=== PATIENT | female | born 1945 | race Caucasian/White ===

== ENCOUNTER 2019-09-16 08:35 | Outpatient (CLI) | payer MEDICARE, OTHER, SELFPAY ==
--- NOTE | ~2019-09-16 | MM_ITS ---
EXAMINATION: MM screening [facility] BI w [facility]rew HISTORY: Screening mammogram TECHNIQUE: Craniocaudal and mediolateral oblique 3-D tomosynthesis images were obtained and synthetic 2-D images were generated. CAD analysis was submitted and interpreted. COMPARISON: Comparison to multiple prior studies sequentially, with oldest reviewed study dated 11/2013. BREAST PARENCHYMAL COMPOSITION: There are scattered areas of fibroglandular density. FINDINGS: Stable architectural distortion upper outer quadrant of the right breast consistent with pr evious lumpectomy. There are benign breast calcifications. There is no evidence of suspicious mass, c alcification, or architectural distortion to suggest malignancy in either breast. There has been no s uspicious interval change. IMPRESSION: 1. No mammographic evidence of malignancy. 2. Recommend routine screening mammography in one year. BI-RADS Category 2: Benign finding(s). Reviewed, dictated and finalized at location A.
== END 2019-09-16 08:36 | disposition home or self-care (01) ==
PROVIDERS: PCP Physician Assistant; Visit Provider Physician Assistant
DX: Z12.31 Encounter for screening mammogram for malignant neoplasm of breast (principal)
CPT/HCPCS: 77063; 77067

== ENCOUNTER 2020-09-17 08:52 | Outpatient (CLI) | payer MEDICARE, OTHER, SELFPAY ==
--- NOTE | ~2020-09-17 | MM_ITS ---
EXAMINATION: MM screening [facility] BI w andrew HISTORY: Screening mammogram TECHNIQUE: Craniocaudal and mediolateral oblique 3-D tomosynthesis images were obtained and synthetic 2-D images were generated. CAD analysis was submitted and interpreted. COMPARISON: 09/16/2019 09/13/2018, 09/09/2017 BREAST PARENCHYMAL COMPOSITION: There are scattered areas of fibroglandular density. FINDINGS: Stable lumpectomy changes are present in the upper outer quadrant of the right breast. Ther e is no evidence of suspicious mass, calcification, or architectural distortion to suggest malignancy in either breast. There has been no suspicious interval change. IMPRESSION: 1. No mammographic evidence of malignancy. 2. Recommend routine screening mammography in one year. BI-RADS Category 2: Benign finding(s). Reviewed, dictated and finalized at location A.
== END 2020-09-17 08:53 | disposition home or self-care (01) ==
LOC: ANHIMG 08:56
PROVIDERS: PCP Physician Assistant; Visit Provider Physician Assistant
DX: Z12.31 Encounter for screening mammogram for malignant neoplasm of breast (principal)
CPT/HCPCS: 77063; 77067

== ENCOUNTER 2020-12-09 17:54 | Emergency (ER) | payer MEDICARE, OTHER, SELFPAY ==
--- NOTE | ~2020-12-09 | CT_ITS ---
EXAMINATION: CT brain wo con DATE: 12/09/2020 23:01 INDICATION: Dizziness. TECHNIQUE: Computed tomography (CT) of the head was performed without intravenous contrast. The mA wa s adjusted according to patient size. Iterative reconstruction technique was employed. The dose-lengt h product was 605.33 mGy-cm. COMPARISON: None FINDINGS: There are scattered areas of low attenuation in the cerebral white matter, which is within normal limits for the patient's age. There is no intracranial hemorrhage, acute infarction, or abnorm al intracranial mass lesion. The ventricles are normal in size. There is mild mucosal thickening in t he paranasal sinuses. The mastoid air cells are normal. The orbits are normal. IMPRESSION: 1. Normal aging brain. Reviewed, dictated and finalized at location A. IMPRESSION: 1. Normal aging brain.
--- NOTE | ~2020-12-09 | XR_ITS ---
EXAMINATION: XR chest 1V portable DATE: 12/09/2020 22:57 INDICATION: Dizziness. TECHNIQUE: A single frontal view of the chest was obtained. COMPARISON: None. FINDINGS: There is eventration of right hemidiaphragm. No pneumonia, pleural effusion, or pneumothora x. The heart size is normal. IMPRESSION: 1. No acute cardiopulmonary disease. Reviewed, dictated and finalized at location A.
[2020-12-09 17:57] VITALS: BP 154/68; PULSE 88; RESP 16; TEMP 36.3; O2SAT 96
--- NOTE | 2020-12-09 18:00 | ECG_ITS ---
Measurements Intervals [place] Rate: 76 P: 18 OK: 180 QRS: 6 QRSD: 70 T: 52 QT: 374 QTc: 421 Interpretive Statements SINUS RHYTHM INCOMPLETE RIGHT BUNDLE BRANCH BLOCK VOLTAGE CRITERIA FOR LVH BORDERLINE ECG Electronically Signed On 12-09-2020 18:33:27 CDT by Donis Her D.O.
[2020-12-09 18:24] LABS: Basophils Absolute Auto 0.1 K/mm3 (0.0-0.1); Basophils Percent Auto 0.6 % (0.2-1.2); Eosinophils Absolute Auto 0.3 K/mm3 (0-0.3); Eosinophils Percent Auto 2.7 % (0-4.4); Hematocrit 42.1 % (37.0-47.0); Hemoglobin 13.6 g/dL (12.0-15.0); Immature Granulocyte Absolute 0.05 K/mm3 (0.00-0.031); Immature Granulocyte Percent A 0.5 % (0-0.5); Lymphocytes Absolute Auto 4.37 K/mm3 (0.9-3.2); Lymphocytes Percent Auto 41.2 % (18.3-44.2); Mean Corpuscular HGB Conc 32.3 g/dl (32-36); Mean Corpuscular Hemoglobin 29.4 pg (26-34); Mean Corpuscular Volume 91.1 fl (80-100); Monocytes Percent Auto 9.5 % (2.6-8.5); Neutrophils Absolute Auto 4.8 K/mm3 (1.3-6.7); Neutrophils Percent Auto 45.5 % (45.5-73.1); Platelet Count Result 367 k/mm3 (150-375); Red Blood Count 4.62 M/mm3 (4.2-5.4); Red Cell Distribution Width 13.4 % (11.5-14.5); White Blood Count 10.6 K/mm3 (4.5-10.0)
[2020-12-09 18:35] LABS: Anion Gap 14 mmol/L (8-16); Blood Urea Nitrogen 27 mg/dL (7-17); Calcium 10.1 mg/dL (8.4-10.2); Carbon Dioxide 24 mmol/L (22-30); Chloride 100 mmol/L (98-107); Estimated CRCL calculation 56 ml/min; Estimated Glomerular Filt Rate > 60; Glucose 184 mg/dL (65-105); Potassium 3.5 mmol/L (3.4-5.0); Sodium 138 mmol/L (137-145)
[2020-12-09 20:42] VITALS: BP 142/65; PULSE 84; RESP 14; TEMP 36.8; O2SAT 93
--- NOTE | 2020-12-09 22:39 | ED.DIZZY ---
HPI - Dizziness General Chief Complaint: Syncope Stated Complaint: SYNCOPE Time Seen by Provider: 12/09/20 22:34 Source: RN notes reviewed History of Present Illness HPI Narrative: Patient presents emergency department from home for dizziness. Patient states approximately 4 PM today she began to feel very dizzy with a feeling that she could pass out and that the room was spinning she states that this is associated with 3 episodes of nausea and vomiting states that approximately after 1 hour the symptoms completely resolved and she is been symptom-free since that time she denies any numbness or tingling in the extremities, difficulty speaking, chest pain, shortness of breath, abdominal pain or any other symptoms Related Data Home Medications Medication Instructions Recorded Confirmed levothyroxine 12/09/20 lisinopril-hydrochlorothiazide tablet 12/09/20 metformin mg 12/09/20 Allergies Allergy/AdvReac Type Severity Reaction Status Date / Time No Known Allergies Allergy Mild Verified 12/09/20 17:57 NKDA Allergy Unknown NONE Uncoded 08/25/07 10:57 Review of Systems Review of Systems: Narrative: Gen.: Denies fevers or chills Eyes: Denies eye pain or visual change ENT: Denies congestion Respiratory: Denies shortness of breath or cough CV: Denies chest pain or palpitations GI: Denies abdominal pain reports nausea vomiting denies burning, urgency, frequency or hematuria Musculoskeletal: Denies back pain or muscle pain Neuro: See HPI Skin: Denies rash Except as documented, all other systems reviewed and negative [facility] Past Medical History Medical History (Updated 12/09/20 @ 23:46 by Mika Alatorre DO) Diabetes mellitus Family History Family History (Updated 08/13/15 @ 16:27 by DOCTOR UNKNOWN) Other Diabetes mellitus Family history of cardiovascular disease Hypertension Social History Social History Smoking status: Never smoker Second hand tobacco smoke exposure: No Alcohol intake: never Gender identity (if verbalized by the patient): Female Exam Narrative: Exam Narrative: APPEARANCE: No acute distress, nontoxic, resting in bed HEENT: Normocephalic, atraumatic, OMM, TMs clear bilaterally EYES: PERRL, EOMI NECK: Supple, nontender, full range of motion without pain, no meningismus RESPIRATORY: No respiratory distress, clear to auscultation bilaterally with no rhonchi wheezing or rales CARDIOVASCULAR: RRR s murmur ABDOMINAL: Soft, nontender, nondistended MUSCULOSKELETAL: Moves all extremities. No clubbing, cyanosis or edema. NEURO: A and O ?3, following commands, speech normal, cranial nerves II through XII grossly intact,muscle strength 5 out of 5 bilateral upper and lower extremities SKIN:: Warm, dry. Normal Color PSYCHIATRIC: Normal affect/mood Course Course Emergency Course: Patient has been asymptomatic throughout her stay in the ED Discussed with patient results of workup and diagnosis. Discussed need for follow-up with primary care, proper use of medication, and reasons to return to the emergency department. Patient understands and agrees to current treatment plan Vital Signs Vital signs: Vital Signs Temperature 97.4 F L 12/09/20 17:57 Pulse Rate 88 12/09/20 17:57 Respiratory Rate 16 12/09/20 17:57 Blood Pressure 154/68 H 12/09/20 17:57 Pulse Oximetry 96 12/09/20 17:57 Temperature 98.3 F 12/09/20 20:42 Pulse Rate 84 12/09/20 20:42 Respiratory Rate 14 12/09/20 20:42 Blood Pressure 142/65 H 12/09/20 20:42 Pulse Oximetry 93 12/09/20 20:42 MDM - Dizziness MDM Narrative Medical decision making narrative: Patient's vertigo is felt to be likely peripheral in origin. There is no diplopia, dysarthria or dysphagia. Patient's gait is stable and there are no cerebral deficits to exam. Risk factor for central causes of vertigo reviewed. Patient felt likely reasonable for continued outpatient manag
[2020-12-09 23:41] LABS: Troponin I < 0.012 ng/mL (0.000-0.034)
[2020-12-09 23:52] LABS: INR 0.9; Prothrombin Time 12.5 Seconds (11.1-14.7)
[2020-12-09 23:55] LABS: Partial Thromboplastin Time 24.7 SECONDS (22.3-36.8)
[2020-12-10 00:08] VITALS: BP 143/71; PULSE 79; RESP 25; O2SAT 96
== END 2020-12-10 00:11 | disposition home or self-care (01) ==
PROVIDERS: Emergency Medicine; Emergency Provider Emergency Medicine; PCP Physician Assistant
DX: R42 Dizziness and giddiness (principal); E11.9 Type 2 diabetes mellitus without complications; Z79.84 Long term (current) use of oral hypoglycemic drugs
CPT/HCPCS: 36415; 70450; 71045; 80048; 84484; 85025; 85610; 85730; 93005; 99284

== ENCOUNTER 2020-12-31 13:53 | Outpatient (CLI) | payer MEDICARE, OTHER, SELFPAY ==
--- NOTE | ~2020-12-31 | US_ITS ---
EXAMINATION: US carotid duplex BI DATE: 12/31/2020 14:33 INDICATION: Dizziness. TECHNIQUE: Grayscale, color Doppler, and pulsed Doppler images of the cervical carotid arteries were obtained. The degree of vessel stenosis is placed in one of the following categories: normal, <50%, 5 0-69%, >=70% but less than near-occlusion, near-occlusion, or total occlusion. Note that percent sten osis relative to normal distal artery lumen diameter is indirectly measured from velocity measurement s as described by Vic, et al. Radiology 2003; [id number]. COMPARISON: None. FINDINGS: RIGHT: The right common carotid artery (CCA) peak systolic velocity (PSV) is 173 cm/s. The right internal ca rotid artery (ICA) PSV is 94 cm/s. The right ICA end-diastolic velocity (EDV) is 25 cm/s. The right I CA/CCA PSV ratio is 0.5. Grayscale and color Doppler images yield an estimate of <50% diameter reduct ion from plaque in the ICA. There is antegrade flow in the right vertebral artery. LEFT: The left CCA PSV is 106 cm/s. The left ICA PSV is 86 cm/s. The left ICA EDV is 25 cm/s. The left ICA/ CCA PSV ratio is 0.8. Grayscale and color Doppler images yield an estimate of <50% diameter reduction from plaque in the ICA. There is antegrade flow in the left vertebral artery. IMPRESSION: 1. <50% stenosis in the right internal carotid artery. 2. <50% stenosis in the left internal carotid artery. Reviewed, dictated and finalized at location A.
== END 2020-12-31 13:54 | disposition home or self-care (01) ==
PROVIDERS: PCP Physician Assistant; Visit Provider Physician Assistant
DX: R42 Dizziness and giddiness (principal); I65.23 Occlusion and stenosis of bilateral carotid arteries
CPT/HCPCS: 93880

== ENCOUNTER 2021-10-11 08:05 | Outpatient (CLI) | payer MEDICARE, OTHER, SELFPAY ==
--- NOTE | ~2021-10-11 | MM_ITS ---
EXAMINATION: MM screening [facility] BI w andrew HISTORY: Screening TECHNIQUE: Craniocaudal and mediolateral oblique 3-D tomosynthesis images were obtained and synthetic 2-D images were generated. CAD analysis was submitted and interpreted. COMPARISON: Comparison to multiple prior studies sequentially, with oldest reviewed study dated 09/2015. BREAST PARENCHYMAL COMPOSITION: There are scattered areas of fibroglandular density. FINDINGS: There is no evidence of suspicious mass, calcification, or architectural distortion to sugg est malignancy in either breast. There has been no suspicious interval change. IMPRESSION: 1. No mammographic evidence of malignancy. 2. Recommend routine screening mammography in one year. BI-RADS Category 1: Negative Reviewed, dictated and finalized at location A.
== END 2021-10-11 08:06 | disposition home or self-care (01) ==
PROVIDERS: PCP Physician Assistant; Visit Provider Physician Assistant
DX: Z12.31 Encounter for screening mammogram for malignant neoplasm of breast (principal)
CPT/HCPCS: 77063; 77067

== ENCOUNTER 2023-03-02 08:06 | Outpatient (CLI) | payer MEDICARE, OTHER, SELFPAY ==
--- NOTE | ~2023-03-02 | MM_ITS ---
EXAMINATION: MM screening [facility] BI w andrew HISTORY: Screening mammogram, history of right breast cancer TECHNIQUE: Craniocaudal and mediolateral oblique 3-D tomosynthesis images were obtained and synthetic 2-D images were generated. CAD analysis was submitted and interpreted. COMPARISON: 10/11/2021, 09/17/2020, 09/16/2019 BREAST PARENCHYMAL COMPOSITION: There are scattered areas of fibroglandular density. FINDINGS: There are stable lumpectomy changes of the right breast. No suspicious mass, calcification, or architectural distortion are identified in either breast to suggest malignancy. There has been no suspicious interval change. IMPRESSION: 1. No mammographic evidence of malignancy. 2. Recommend routine screening mammography in one year. BI-RADS Category 2: Benign finding(s). Reviewed, dictated and finalized at location A.
== END 2023-03-02 08:07 | disposition home or self-care (01) ==
LOC: ANHIMG 08:08
PROVIDERS: PCP Physician Assistant; Visit Provider Physician Assistant
DX: Z12.31 Encounter for screening mammogram for malignant neoplasm of breast (principal)
CPT/HCPCS: 77063; 77067

== ENCOUNTER 2024-03-07 08:54 | Outpatient (CLI) | payer MEDICARE, OTHER, SELFPAY ==
--- NOTE | ~2024-03-07 | MM_ITS ---
EXAMINATION: MM screening [facility] BI w andrew HISTORY: Screening TECHNIQUE: Craniocaudal and mediolateral oblique 3-D tomosynthesis images were obtained and synthetic 2-D images were generated. CAD analysis was submitted and interpreted. COMPARISON: Comparison to multiple prior studies sequentially, with oldest reviewed study dated 09/09. BREAST PARENCHYMAL COMPOSITION: Not dense: There are scattered areas of fibroglandular density. FINDINGS: Stable architectural distortion in the right breast, consistent with previous lumpectomy. T here is no evidence of suspicious mass, calcification, or architectural distortion to suggest maligna ncy in either breast. There has been no suspicious interval change. IMPRESSION: 1. No mammographic evidence of malignancy. 2. Recommend routine screening mammography in one year. BI-RADS Category 1: Negative Reviewed, dictated and finalized at location B.
== END 2024-03-07 08:55 | disposition home or self-care (01) ==
LOC: ANHIMG 08:56
PROVIDERS: PCP Physician Assistant; Visit Provider Physician Assistant
DX: Z12.31 Encounter for screening mammogram for malignant neoplasm of breast (principal)
CPT/HCPCS: 77063; 77067

== ENCOUNTER 2024-09-15 10:45 | Outpatient (CLI) | payer MEDICARE, OTHER, SELFPAY ==
--- NOTE | ~2024-09-15 | MM_ITS ---
EXAMINATION: MM diagnostic hillary BI w andrew HISTORY: History of right lumpectomy. Discolored spots of the right breast for 2 weeks. Prior radiati on therapy. TECHNIQUE: Additional 3-D tomosynthesis images of the breasts were performed and synthetic 2-D images were generated. CAD analysis was submitted and interpreted. COMPARISON: Comparison to multiple prior studies sequentially, with oldest reviewed study dated 09/13. BREAST PARENCHYMAL COMPOSITION: Not dense: There are scattered areas of fibroglandular density. FINDINGS: The breasts are stable. No new masses, calcifications or architectural distortion in either breast to suggest malignancy. There are lumpectomy changes of the right breast in the upper outer qu adrant, middle third. There are multiple areas of fat necrosis in the right breast. IMPRESSION: 1. No evidence for malignancy in either breast. 2. Routine yearly screening mammogram and regular clinical breast examination are recommended. BI-RADS Category 2: Benign finding(s). Reviewed, dictated and finalized at location B. IMPRESSION: 1. No evidence for malignancy in either breast. 2. Routine yearly screening mammogram and regular clinical breast examination a re recommended. BI-RADS Category 2: Benign finding(s).
--- OUTSIDE RECORDS SUMMARY | 2024-09-15 11:35 | XMS_ITS | Data Portability ---
Author Organization [facility] Address [address] [place] [address] Care Team Providers Care Biomedical Engineering Internship Name Role Phone DIPESH HORNER Primary Care Provider RAAD [facility] Customer Service Representative Assessment Encounter Date Assessment Date Assessment LastModified by Organization Details LastModified Time 09/14/2023 09/14/2023 mammogram Mar 2023. all clear. cologuard was positive and f/u colonoscopy 2022, all clear. int hemorrhoids eye exam: UTD 2023. dental UTD, has cavity and gets filled next month Not available 09/14/2023 12:45:22 03/15/2024 03/15/2024 mammogram Mar 2024. all clear. cologuard was positive and f/u colonoscopy 2022, all clear. int hemorrhoids eye exam: UTD 2023. dental UTD Not available 03/15/2024 12:46:01 Plan of Treatment Reminders Order Date Submit Date Provider Last Modified By Organization Details Last Modified Time Details Appointments ANY 15 2024 09:00A M MARYA Reyes Not available Not available Not available Lab glycohemo globin, total, blood 2023 025 [facility] (Lab), [address] [place], [address], 07/04/2024 09:44:53 CBC w/ auto diff 2023 025 [facility] (Lab), [address] [place], [address], 08/22/2024 13:42:55 BMP, serum or plasma 2023 025 [facility] (Lab), [address] [place], [address], 07/04/2024 09:44:53 hepatic function panel, serum 2023 025 [facility] (Lab), [address] [place], [address], 07/04/2024 09:44:54 TSH, serum or plasma 2023 025 [facility] (Lab), [address] [place], [address], 07/04/2024 09:44:53 T4, free, serum 2023 025 [facility] (Lab), [address] [place], [address], 07/04/2024 09:44:54 lipid panel, serum 2023 025 [facility] (Lab), [address] [place], [address], 08/22/2024 13:42:55 glycohemo globin, total, blood 2023 024 [email or web address] [facility] (Lab), [address] [place], [address], 11/16/2023 17:11:39 microalbu min, urine 2023 024 [email or web address] [facility] (Lab), [address] [place], [address], 11/16/2023 17:11:40 microalbu min/creat inine, ratio, urine 2023 024 [facility] (Lab), [address] [place], [address], 11/16/2023 17:11:40 CBC w/ auto diff 2023 024 [email or web address] [facility] (Lab), [address] [place], [address], 11/16/2023 17:11:39 BMP, serum or plasma 2023 024 [facility] (Lab), [address] [place], [address], 11/16/2023 17:11:39 hepatic function panel, serum 2023 024 [email or web address] [facility] (Lab), [address] [place], [address], 11/16/2023 17:11:39 TSH, serum or plasma 2023 024 [email or web address] [facility] (Lab), [address] [place], [address], 11/16/2023 17:11:40 T4, free, serum 2023 024 [email or web address] [facility] (Lab), [address] [place], [address], 11/16/2023 17:11:40 lipid panel, serum 2023 024 [email or web address] [facility] (Lab), [address] [place], [address], 11/16/2023 17:11:39 Referral None recorded. Procedures None recorded. Surgeries None recorded. Imaging None recorded. Medication Orders Farxiga 10 mg tablet 2023 024 [id number], [address], [place], [place], [id number], 03/15/2024 12:46:36 lisinopri l 20 mg tablet 2023 024 [facility] #[id number], [address], [place], [place], [id number], 09/14/2023 14:52:08 Patient TargetsNo targets recorded. Patient Instructions Encounter Date Encounter Id Patient Instructions Last Modified By Organization Details Last Modified Time 09/14/2023 [id number] A healthy lifestyle: care instructions Not available 09/14/2023 12:52:53 03/15/2024 [id number] A healthy lifestyle: care instructions Not available 03/15/2024 12:46:30 Reason for Referral None Reported. Results Created Date Observation Date Name Description Value Unit Range Abnormal Flag Note LastModifiedBy Organization Detail LastModifiedTime 08/31/19 24 07/16/2023 XR, chest No observ ation record ed. [id number] [address] [facility], [place], [address], 09/15/2023 11:48:52 03/07/20 24 03/07/2024 MAMMO , scree sarah, digit al, bilat eral No observ ation record ed. [facility] [address], [place], [address], 04/02/2024 21:41:52 Result Notes None recorded. Problems Name Problem SNOMED Code Status Onset Date Resolution Date Notes Provider Name and Address Organization Details Recorded Time Obesity 600246414 Active 2023 MARYA Reyes Attn: Teagan g,[address], [place], [address], [facility] - [place] 12:52:28 History of malignant neoplasm of breast 666878839 Active 2023 MARYA Reyes Attn: Accountin g,[address] [facility], [place], [address], [place] [facility] 4 12:52:41 Long-term drug therapy Active 2023 MARYA Reyes Attn: Accountin g,[address] [facility], [place], [address], [place] [facility] 4 12:52:42 Hypothyroidism 77675387 Active 2023 MARYA Reyes Attn: Accountin g,[address] [facility], [place], [address], [place] [facility] 4 12:52:44 Hyperlipidemia 83408946 Active 2023 MARYA Reyes Attn: Accountin g,[address] [facility], [place], [address], [place] [facility] 4 12:52:45 Benign essential hypertension 8122948 Active 2023 MARYA Reyes Attn: Accountin g,[address] [facility], [place], [address], [place] [facility] 4 12:52:47 Type 2 diabetes mellitus without complication 875346910 Active 2023 MARYA Reyes Attn: Accountin g,[address] [facility], [place], [address], [place] [facility] 4 12:52:48 Body mass index 30+ - obesity 131261455 Active 2023 MARYA Reyes Attn: Accountin g,[address] [facility], [place], [address], [place] [facility] 4 12:52:52 Uncontrolled type 2 diabetes mellitus 323352163 Active 2023 MARYA Reyes Attn: Accountin g,[address] [facility], [place], [address], [place] [facility] 4 21:42:45 Problem Notes None recorded. Procedures Surgical History Date Name Laterality Status Provider Name and Address Organization Details Recorded Time Diabetic Foot Exam completed Jaleel Farias MA [facility] 03/15/2024 12:16:18 Breast Surgery completed Camila Abel MA [facility] 09/14/2023 12:32:37 Imaging Results Imaging Date Name Status LastModified by Organiz ation Details LastModified Time 07/16/2023 XR, chest completed [address] [place] [address] [facility], [address] , [place], [address], 09/15/2023 11:48:52 03/07/2024 MAMMO, screening, digital, bilateral completed [email or web address] [facility] [address] [facility] [address], [place], [address], 04/02/2024 21:41:52 Procedure Notes None recorded. Medical Equipment None Reported. Allergies No known drug allergies Medications Name Sig Start Date Stop Date Status Note LastModified by Organization Details LastModified Time latanoprost 0.005 % eye drops INSTILL 1 DROP IN RIGHT EYE EVERY NIGHT AT BEDTIME active Not Available Not Available No t Available metformin 500 mg tablet TAKE 1 TABLET BY MOUTH TWICE DAILY active Not Available Not Available No t Available levothyroxi ne 137 mcg tablet TAKE 1 TABLET BY MOUTH EVERY DAY 10/15 completed Not Available Not Available Not Available atorvastati n 10 mg tablet TAKE 1 TABLET BY MOUTH DAILY 2024 active Not Available Not Available Not Avai lable lisinopril 20 mg-hydrochl orothiazide 12.5 mg tablet 1 tab p.o. daily 09/07 completed Not Available Not Available Not Available azithromyci n 250 mg tablet 09/13 completed Not Available Not Available Not Available benzonatate 200 mg capsule TAKE 1 CAPSULE BY MOUTH THREE TIMES DAILY NEEDED FOR COUGH active Not Available Not Available No t Available lisinopril 20 mg tablet TAKE 1 TABLET BY MOUTH EVERY DAY AT DINNER active Not Available Not Available No t Available levothyroxi ne 125 mcg tablet Take 1 tablet every day by oral route for 90 days. active Not Available Not Available No t Available albuterol sulfate HFA 90 mcg/actuati on aerosol inhaler INHALE 2 PUFFS BY MOUTH EVERY 6 HOURS NEEDED 03/15 completed Not Available Not Available Not Available aspirin active Not Available Not Avail able Not Available Vitamin D active otc Not Available Not Terra ilable Not Available Farxiga 10 mg tablet TAKE 1 TABLET BY MOUTH EVERY DAY active Not Available Not Available No t Available Farxiga 5 mg tablet Take 1 tablet every day by oral route for 90 days. 03/15 completed Not Available Not Available Not Available Fish Oil 1,000 mg (120 mg-180 mg) capsule Take by oral route. active Not Available Not Available No t Available Mounjaro 2.5 mg/0.5 mL subcutaneou s pen injector ADMINISTE R 2.5 MG UNDER THE SKIN EVERY WEEK active Not Available Not Available No t Available Vitals Date Recorded Body height Body mass index (BMI) Body weight Heart rate Oxygen saturation Oxygen saturation in Arterial blood by Pulse oximetry Systolic blood pressure Diastolic blood pressure Provider Name and Address Organization Details Last Updated DateTime 4 165.1 cm 33.4 kg/m2 18707.0 7 g 89 /min 95 % 95 % 132 mm[Hg] 74 mm[Hg] Camila Abel MA [facility] 4 12:32:13 Date Recorded Respiratory rate Systolic blood pressure Diastolic blood pressure Systolic blood pressure Diastolic blood pressure Provider Name and Address Organization Details Last Updated DateTime 4 16 /min 150 mm[Hg] 88 mm[Hg] 150 mm[Hg] 90 mm[Hg] AMRYA Reyes Attn: Teagan lange,[address] [place], [address], [place] - [facility] 4 12:51:52 Date Recorded Body height Body mass index (BMI) Body weight Oxygen saturation Oxygen saturation in Arterial blood by Pulse oximetry Heart rate Systolic blood pressure Diastolic blood pressure Provider Name and Address Organization Details Last Updated DateTime 4 165.1 cm 32.4 kg/m2 35523.5 1 g 97 % 97 % 78 /min 140 mm[Hg] 80 mm[Hg] Jaleel Farias MA [facility] 4 12:14:03 Date Recorded Respiratory rate Systolic blood pressure Diastolic blood pressure Provider Name and Address Organization Details Last Updated DateTime 03/15/2024 18 /min 130 mm[Hg] 80 mm[Hg] MARYA Reyes Attn: Accounting, [address] [place], [address], [facility] 03/15/2024 12:46:07 Date Recorded Body height Body mass index (BMI) Body weight Oxygen saturation Oxygen saturation in Arterial blood by Pulse oximetry Heart rate Systolic blood pressure Diastolic blood pressure Provider Name and Address Organization Details Last Updated DateTime 165.1 cm 31.5 kg/m2 74831.9 6 g 97 % 97 % 89 /min 150 mm[Hg] 82 mm[Hg] Jaleel Farias MA [facility] 10:00:19 Date Recorded Respiratory rate Systolic blood pressure Diastolic blood pressure Provider Name and Address Organization Details Last Updated DateTime 09/07/2024 16 /min 130 mm[Hg] 80 mm[Hg] MARYA Reyes Attn: Accounting, [address] [place], [address], [facility] 09/07/2024 10:21:04 Social History Question Answer Notes LastModified by Organizat ion Details LastModified Time Tobacco Smoking Status Never Smoker Camila Abel MA [facility], [facility] 09/14/2023 12:18:01 Do You Have An Advance Directive? Yes Information not available 09/14/2023 What Is Your Level Of Alcohol Consumption? None Information not available 09/14/2023 Are You Blind Or Do You Have Difficulty Seeing? Yes Glasses Information not available 09/14/2023 What Is Your Level Of Caffeine Consumption? Moderate Coffee Information not available 09/14/2023 In The 14 Days Before Symptom Onset, Have You Had Close Contact With A Laboratory-confir med COVID-19 While That Case Was Ill? No Information not available 09/14/2023 In The 14 Days Before Symptom Onset, Have You Had Close Contact With A Person Who Is Under Investigation For COVID-19 While That Person Was Ill? No Information not available 09/14/2023 Have You Been To An Area Known To Be High Risk For COVID-19? No Information not available 09/14/2023 Are You Currently Employed? No Retired Information not available 09/14/2023 Are You Deaf Or Do You Have Serious Difficulty Hearing? No Information not available 09/14/2023 What Type Of Diet Are You Following? REGULAR Information not available 09/14/2023 What Is The Highest Grade Or Level Of School You Have Completed Or The Highest Degree You Have Received? [id number] Information not available 09/14/2023 Are There Any Guns Present In Your Home? Yes Information not available 09/14/2023 What Was The Date Of Your Most Recent Tobacco Screening? 09/07/2024 Information not available 09/07/2024 What Is Your Relationship Status? Information not available 09/14/2023 Do You Use Your Seat Belt Or Car Seat Routinely? Yes Information not available 03/15/2024 Do You Have Smoke And Carbon Monoxide Detectors In Your Home? Yes Information not available 09/14/2023 Do You Feel Stressed (tense, Restless, Nervous, Or Anxious, Or Unable To Sleep At Night)? [id number] Information not available 09/14/2023 Do You Use Any Illicit Or Recreational Drugs? No Information not available 03/15/2024 Do You Use Sunscreen Routinely? No Information not available 09/14/2023 Has Tobacco Cessation Counseling Been Provided? No Information not available 03/15/2024 Do You Or Have You Ever Used Any Other Forms Of Tobacco Or Nicotine? No Information not available 03/15/2024 Sex: Unknown Functional Status Question Answer Note LastModified by Organization D etails LastModified Time Are you able to care for yourself? Yes Information n ot available 09/14/2023 What is your exercise level? None Information not available 09/14/2023 Mental Status None recorded. Family History Relationship Description Onset Age of this Age Resolved Age Notes LastModified by Organization Details LastModified Time Mother Diabetes mellitus mebyma Not available 2023 12:17:17 Mother Heart disease mebyma Not available 2023 12:17:31 Father Diabetes mellitus mebyma Not available 2023 12:17:22 Brother Diabetes mellitus scbyma Not available 2023 12:33:18 Brother Heart disease mebyma Not available 2023 12:33:22 Medical History Condition Response Coronary Artery Disease N Other N High Blood Pressure Y Atrial Fibrillation N Kidney or Bladder Problems N Thyroid Problems Y GI Problems N Depression N COPD N Blood Clots N Skin Problems N Anemia N Heart Attack ([place]) N Anxiety Disorder N Diabetes Y Muscle, Joint, or Bone Problems N Seizures/Epilepsy N Acid Reflux (GERD) N Cancer Y Stroke N Asthma N Allergies N High Cholesterol Y Hepatitis N Liver Disease N Headaches N Heart Failure N Osteoporosis N Gynecological History Statement/Question Response Menses Monthly N Obstetrics History GPAL:G 0 P 0 0 0 0 Immunizations Vaccine Type Date Status Note Provider Nam e and Address Organization Details Recorded Time COVID-19, mRNA, LNP-S, PF, 30 mcg/0.3 mL dose 12/25/2020 completed Jaleel Farias [place], [place] [facility] 03/14/2024 15:25:40 COVID-19, mRNA, LNP-S, PF, 30 mcg/0.3 mL dose 01/15/2021 completed EMMETT [place], [place] - [facility] 03/14/2024 15:25:40 COVID-19, mRNA, LNP-S, PF, 30 mcg/0.3 mL dose, riky-sucrose 07/31/2021 completed EMMETT [place] [facility] 03/14/2024 15:25:40 influenza, unspecified formulation 03/09/2014 [place] EMMET[place] [facility] 03/14/2024 15:25:40 influenza, unspecified formulation 03/10/2012 [place] EMMET[place] [facility] 03/14/2024 15:25:40 influenza, unspecified formulation 03/12/2013 EMMETT Tyler, [place] [facility] 03/14/2024 15:25:40 zoster recombinant 11/20/2023 [place] EMMET[place] [facility] 03/15/2024 12:09:32 zoster recombinant 01/20/2024 completed Jaleel F[place] [facility] 03/15/2024 12:09:32 RSV, recombinant, protein subunit RSVpreF, adjuvant reconstituted, 0.5 mL, PF 11/20/2023 completed Jaleel F[place] [facility] 03/15/2024 12:09:32 Past Encounters Encounter ID Performer Location Encounter Start Date Encounter Closed Date Diagnosis/Indication Diagnosis SNOMED-CT Code Diagnosis ICD10 Code Diagnosis Note [id number] MARYA Reyes [facility] [employer] [address] [place]. [id number] 09/14/2023 12:07:14 09/14/2023 12:56:01 Hyperlipidemia 65966106 E78.5 stable on atorvastat in 10mg daily. due for fasting lipids Hypothyroidism 40884265 E03.9 stable on thyroid supplement . due for TFT labs Type 2 brittanie betes mellitus without complication 262232329 E11.9 stable on metformin 500mg bid. due for a1c and albumin labs. Long-term drug therapy 985739910 Z79.899 cmp, cbc and b12, folate labs are due History of malignant neoplasm of breast 414080560 Z85.3 hx right sided w/lumpecto my. 2008. Benign ess ential hypertension 8629067 I10 Continue lisinopril hctz 20/12.5mg one AM and add solo Lisinopril 20mg po PM. Body mass index 30+ - obesity 840372262 Z68.33 discussed healthy diet, exercise, controllin g carbohydra rudy and added sugars in the diet Obesity 371837265 E66.9 discussed healthy diet, exercise, controllin g carbohydra rudy and added sugars in the diet [id number] MARYA Reyes [facility] [employer] [address] [place]. [id number] 03/15/2024 11:46:57 03/15/2024 12:50:20 Benign essential hypertension 0796288 I10 Continue lisinopril hctz 20/12.5mg one AM and solo Lisinopril 20mg po PM. Hyperlipidemia 56781441 E78.5 stable on atorvastat in 10mg daily. Due for labs again in July Hypothyroidism 99710313 E03.9 stable on thyroid supplement . due for TFT labs Long-term drug therapy 099356888 Z79.899 CBC, BMP and liver function panel repeat in July History of malignant neoplasm of breast 019513087 Z85.3 hx right sided w/lumpecto my. 2007. Body mass index 30+ - obesity 785764056 Z68.33 discussed healthy diet, exercise, controllin g carbohydra rudy and added sugars in the diet Obesity 085043959 E66.9 discussed healthy diet, exercise, controllin g carbohydra rudy and added sugars in the diet Uncontroll ed type 2 diabetes mellitus 728034560 E11.65 A1c on October labs was 8.3%. We will see if Farxiga 10 mg daily is on formulary with insurance to add not only glucose management option but also cardiovasc ular and renal protection via the SGLT2 category repeat A1c in July [id number] MARYA Reyes [facility] [place] [address] [place] [address] 09/07/2024 09:45:23 09/07/2024 13:03:40 Uncontrolled type 2 diabetes mellitus 634759811 E11.65 8.8% , increased from 8.3%. continue farxiga 10mg daily and metformin 500mg bid. Add mounjaro 2.5mg weekly. Benign ess ential hypertension 1421044 I10 Continue lisinopril hctz 20/12.5mg one AM and solo Lisinopril 20mg po PM. Hyperlipidemia 85643998 E78.5 stable on atorvastat in 10mg daily. Hypothyroidism 62535123 E03.9 stable on thyroid supplement . Long-term drug therapy 505529590 Z79.899 History of malignant neoplasm of breast 352503528 Z85.3 hx right sided w/lumpecto my. 2007. Body mass index 30+ - obesity 056389606 Z68.31 BMI 31.5 discussed healthy diet, exercise, controllin g carbohydra rudy and added sugars in the diet Obesity 708146722 E66.9 discussed healthy diet, exercise, controllin g carbohydra rudy and added sugars in the diet Mass of right breast 464 8362829 6586366 N63.10 noticed in the last month or so. Health Concerns Section Related Observation LastModified by Organization Detai ls LastModified Time None Recorded Concern Status LastModified by Organization Details LastModified Time None Recorded Advance Directives Directive Y: Payers Encounter Date Sequence Insurance Name Policy Number Policy Strong Covered Member ID Strong Member ID Guarantor Name 09/14/2023 1 [place] Janessa Boschsimeon [id number] Janessa Jennifer 03/15/2024 1 [place] Janessa Boschsimeon [id number] Janessa Jennifer 03/15/2024 2 [employer] [place] [id number] Janessa Jennifer [id number] Janessa Rodriguez Notes Date Note Type Note Provider Name and Address Organization Details Recorded Time 4 text/html DiabetesReported bypatient.Control:usually well controlled Compliance:compliant with medications; compliant with follow-up visits Self Care:seeing eye doctor regularly; checking feet regularly Associated Symptoms:no weight gain; no weight loss; no dizziness; no sweats; no headaches; no confusion; no increased thirst; no increased appetite; no increased urination; no blurred vision; no numbness of feet; no calluses on feetHyperlipidemiaReported bypatient.Type of hyperlipidemia:combined Duration:chronic Control:usually well controlled Compliance:compliant; compliant with diet;does not exercise Complications:no coronary artery disease; no peripheral artery disease; no cardiovascular disease Risk Factors:diabetes;hypertensi on;obesityHypertensionRepor tom bypatient.Severity:mild Duration:has noted for years Onset/Timing:worse Alleviating Factors:medication Aggravating Factors:weight change Associated Symptoms:no shortness of breath; no fatigue; no palpitations; no decline in exercise capacity; no snoringThyroidReported bypatient.Quality:improving Severity:mild Duration:constant Onset/Timing:better Context:history of hypothyroidism Modifying Factors:medication Exerciseno exercise Associated Symptoms:no hoarseness; no difficulty swallowing; no neck masses; no nervousness; no fatigue; no sleep difficulties;increased blood pressure MARYA Reyes Attn: Accounting,[address] [place], [address], [facility] 09/29/2023 09:42:06 text/html DiabetesReported bypatient.Control:worsened since last visit; treated with diet and oral medications; hemoglobin A1C has been 8-9; hemoglobin A1C goal is less than 7 Compliance:compliant with medications; compliant with follow-up visits Self Care:seeing eye doctor regularly; checking feet regularly Associated Symptoms:no weight gain; no weight loss; no dizziness; no sweats; no headaches; no confusion; no increased thirst; no increased appetite; no increased urination; no blurred vision; no numbness of feet; no calluses on feetHyperlipidemiaReported bypatient.Type of hyperlipidemia:combined Duration:chronic Control:usually well controlled Compliance:compliant; compliant with diet;does not exercise Complications:no coronary artery disease; no peripheral artery disease; no cardiovascular disease Risk Factors:diabetes;hypertensi on;obesityHypertensionRepor tom bypatient.Severity:mild Duration:has noted for years Onset/Timing:worse Alleviating Factors:medication Aggravating Factors:weight change Associated Symptoms:no shortness of breath; no fatigue; no palpitations; no decline in exercise capacity; no snoringThyroidReported bypatient.Quality:improving Severity:mild Duration:constant Onset/Timing:better Context:history of hypothyroidism Modifying Factors:medication Exerciseno exercise Associated Symptoms:no hoarseness; no difficulty swallowing; no neck masses; no nervousness; no fatigue; no sleep difficulties;increased blood pressure MARYA Reyes Attn: Accounting,[address] [place], [address], [facility] 04/02/2024 21:43:40 OBGyn Episode No OBEpisode recorded.
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
--- OUTSIDE RECORDS SUMMARY | 2024-09-15 11:36 | XMS_ITS | Clinical Summary ---
Author Organization [facility] Address [address] [place] [address] Care Team Providers Care Reimbursement Auditor Name Role Phone None, Provider MD Primary Care Provider Unavaila ble Social History Tobacco Use Types Packs/Day Years Used Date Smoking Tobacco: Never Assessed Comments Unknown Sex and Gender Information Value Date Recorded Sex Assigned at Not on file Legal Sex Female 7:12 PM CDT Gender Identity Not on file Sexual Orientation Not on file Plan of Treatment Health Maintenance Due Date Last Done Comments Hepatitis C 1963 DTaP, Tdap and Td Vaccines ( 1 - Tdap) 1965 Zoster Vaccines (1 of 2) 1996 Annual Medicare Wellness Visit 11/06/2011 Dexa Scan (General) 11/06/2011 Pneumococcal Vaccine: 50+ Ye ars (1 of 1 - PCV) 11/06/2011 RSV Immunization or 60+ Years (1 - 1-dose 75+ series) 2021 COVID-19 Vaccine (1 - 2023-2 5 season) 2024 Meningococcal B Vaccine Aged Out No l onger eligible based on patient's age to complete this topic Meningococcal Vaccine Aged Out No kvng manuel eligible based on patient's age to complete this topic RSV Immunizations Under 20 Months Aged Out No longer eligible based on patient's age to complete this topic Insurance MEDICARE Care Teams Reimbursement Auditor Relationship Specialty Start Date End Date None, Provider, PCP - General 03/03/19
== END 2024-09-15 10:46 | disposition home or self-care (01) ==
PROVIDERS: PCP Physician Assistant; Visit Provider Physician Assistant
DX: N63.11 Unspecified lump in the right breast, upper outer quadrant (principal); Z85.3 Personal history of malignant neoplasm of breast; Z92.3 Personal history of irradiation
CPT/HCPCS: 77062; 77066; G0279